=== PATIENT | female | born 1995 | race Caucasian/White ===

== ENCOUNTER 2016-10-12 17:15 | Emergency (ER) | payer BC, OTHER ==
--- NOTE | 2016-10-12 17:45 | ER Document Report ---
ED Medical Screen (RME) - General Stated Complaint: VAGINAL BLEEDING Notes: abdominal cramping vaginal bleeding 445 pm heavy with clots 14 weeks I have greeted and performed a rapid initial assessment of this patient. A comprehensive ED assessment and evaluation of the patient, analysis of test results and completion of the medical decision making process will be conducted by additional ED providers. - Related Data Allergies/Adverse Reactions: No Known Allergies Allergy (Unverified 10/12/16 17:43) Physical Exam - Vital signs Vitals: Temp Pulse Resp BP Pulse Ox 97.9 F 80 16 118/64 100 10/12/16 17:29 10/12/16 17:29 10/12/16 17:29 10/12/16 17:29 10/12/16 17:29 Course - Vital Signs Vital signs: Temp Pulse Resp BP Pulse Ox 97.9 F 80 16 118/64 100 10/12/16 17:29 10/12/16 17:29 10/12/16 17:29 10/12/16 17:29 10/12/16 17:29
[2016-10-12 18:20] LABS: ABSOLUTE EOSINOPHILS # (AUTO) 0.1 10^3/uL (0.0-0.6); ABSOLUTE LYMPHOCYTES (AUTO) 1.6 10^3/uL (0.5-4.7); ABSOLUTE MONOCYTES (AUTO) 0.7 10^3/uL (0.1-1.4); ABSOLUTE NEUT (AUTO) 8.8 10^3/uL (1.7-8.2); BASOPHILS % (AUTO) 0.3 % (0-2); HEMATOCRIT 41.6 % (36.0-47.0); HGB HCT DIFFERENCE 0.4; LYMPHOCYTES % (AUTO) 14.3 % (13-45); MEAN CORPUSCULAR HEMOGLOBIN 31.7 pg (27.0-33.4); MEAN CORPUSCULAR HGB CONC 33.8 g/dL (32.0-36.0); MEAN CORPUSCULAR VOLUME 94 fl (80-97); MONOCYTES % (AUTO) 6.1 % (3-13); RED BLOOD COUNT 4.42 10^6/uL (3.72-5.28); RED CELL DISTRIBUTION WIDTH 12.4 % (11.5-14.0); SEGMENTED NEUTROPHILS % (AUTO) 78.3 % (42-78); WHITE BLOOD COUNT 11.2 10^3/uL (4.0-10.5)
[2016-10-12 18:32] LABS: ALANINE AMINOTRANSFERASE 31 U/L (9-52); ALBUMIN 4.1 g/dL (3.5-5.0); ALKALINE PHOSPHATASE 39 U/L (38-126); ANION GAP 12 (5-19); ASPARTATE AMINO TRANSFERASE 22 U/L (14-36); BILIRUBIN,TOTAL 0.4 mg/dL (0.2-1.3); BLOOD UREA NITROGEN 7 mg/dL (7-20); CALCIUM 9.8 mg/dL (8.4-10.2); CARBON DIOXIDE 25 mmol/L (22-30); CHLORIDE 102 mmol/L (98-107); CREATININE RESULT 0.83 mg/dL (0.52-1.25); GLUCOSE 70 mg/dL (75-110); POTASSIUM 4.1 mmol/L (3.6-5.0); SODIUM 139.3 mmol/L (137-145); TOTAL PROTEIN 7.5 g/dL (6.3-8.2)
--- NOTE | 2016-10-12 19:23 | ER Document Report ---
ED GI/ - General Chief Complaint: Vaginal Bleeding Stated Complaint: VAGINAL BLEEDING Time seen by provider: 19:10 Notes: Patient is a 21 year old femal, at 14 weeks gestation by first trimester ultrasound, that comes to the ED for chief complaint of vaginal bleeding which was painless, lasted for about 30 minutes but did have a few clots, she states that she has stopped bleeding and is currently asymptomatic. Patient states she felt so good this morning that she went for a run. Patient denies fever, nausea or vomiting, vaginal discharge, flank pain. Patient takes vitamins. Past medical history of cholecystectomy, appendectomy. TRAVEL OUTSIDE OF THE [place] IN LAST 30 DAYS: No - Related Data Allergies/Adverse Reactions: No Known Allergies Allergy (Unverified 10/12/16 17:43) Past Medical History - General Information source: Patient - Social History Smoking Status: Never Smoker Chew tobacco use (# tins/day): No Frequency of alcohol use: None Drug Abuse: None Lives with: Family Family History: Reviewed & Not Pertinent Patient has suicidal ideation: No Patient has homicidal ideation: No - Medical History Medical History: Negative Renal/ Medical History: Denies: Hx Peritoneal Dialysis Surgical Hx: Negative - Immunizations Immunizations up to date: Yes Hx Diphtheria, Pertussis, Tetanus Vaccination: Yes Review of Systems - Review of Systems Constitutional: No symptoms reported EENT: No symptoms reported Cardiovascular: No symptoms reported Respiratory: No symptoms reported Gastrointestinal: No symptoms reported Genitourinary: No symptoms reported Female Genitourinary: See HPI Musculoskeletal: No symptoms reported Skin: No symptoms reported Hematologic/Lymphatic: No symptoms reported Neurological/Psychological: No symptoms reported Physical Exam - Vital signs Vitals: Temp Pulse Resp BP Pulse Ox 97.9 F 80 16 118/64 100 10/12/16 17:29 10/12/16 17:29 10/12/16 17:29 10/12/16 17:29 10/12/16 17:29 Interpretation: Normal - General General appearance: Appears well, Alert In distress: None - HEENT Head: Normocephalic, Atraumatic Eyes: Normal Pupils: PERRL - Respiratory Respiratory status: No respiratory distress Chest status: Nontender Breath sounds: Normal Chest palpation: Normal - Cardiovascular Rhythm: Regular Heart sounds: Normal auscultation Murmur: No - Abdominal Inspection: Normal Distension: No distension Bowel sounds: Normal Tenderness: Nontender. No: Tender, McBurney's point, Albarado's sign, Guarding Organomegaly: No organomegaly - Back Back: Normal, Nontender. No: Tender, CVA tenderness - Extremities General upper extremity: Normal inspection, Nontender, Normal color, Normal ROM , Normal temperature General lower extremity: Normal inspection, Nontender, Normal color, Normal ROM , Normal temperature, Normal weight bearing. No: Dianelys's sign - Neurological Neuro grossly intact: Yes Cognition: Normal Orientation: AAOx4 [place] Coma Scale Eye Opening: Spontaneous [place] Coma Scale Verbal: Oriented Marycruz Coma Scale Motor: Obeys Commands Marycruz Coma Scale Total: 15 Speech: Normal Motor strength normal: LUE, RUE, LLE, RLE Sensory: Normal - Psychological Associated symptoms: Normal affect, Normal mood - Skin Skin Temperature: Warm Skin Moisture: Dry Skin Color: Normal Course - Re-evaluation Re-evalutation: Soft abdomen, no abdomen tenderness reported. Living IUP with no noted abnormalities on ultrasound. RhoGAM is not indicated. Laboratory workup is unremarkable. Discussed all details of patient, gave precautions, patient has close follow up with 911 TELECOMMUNICATOR plan, discussed return precautions. Patient and significant other state understanding and agreement - Vital Signs Vital signs: Temp Pulse Resp BP Pulse Ox 98.5 F 84 18 112/68 100 10/12/16 20:44 10/12/16 20:44 10/12/16 20:44 10/12/16 20:44 10/12/16 20:44 - Laboratory Result Diagrams: 10/12/16 17:55 10/12/16 17:55 Laboratory results interpreted by me: 10/12/16 10/12/16 17:55 17:55 WBC 11.2 H Seg Neutrophils % 78.3 H Absolute Neutrophils 8.8 H Glucose 70 L Beta HCG, Quant 71153.00 H Discharge - Discharge Clinical Impression: Vaginal bleeding in patient at less than 20 weeks gestation Condition: Stable Disposition: HOME, SELF-CARE Additional Instructions: Ultrasound shows living intrauterine with no concerning abnormalities. Blood type is A+, laboratory workup shows no concerning findings. Follow precautions: do not run, perform jumping or lifting exercises, do not have intercourse until cleared to do so by 911 TELECOMMUNICATOR. Return to emergency department for any concerning symptoms. Forms: Return to Work Referrals: HANH LYONS MD [Primary Care Provider] - Follow up as needed
[2016-10-12 20:53] VITALS: BP 112/68
== END 2016-10-12 20:54 | disposition home or self-care (01) ==
LOC: ER 17:15
DX: O20.9 Hemorrhage in early pregnancy, unspecified (principal); N93.8 Other specified abnormal uterine and vaginal bleeding; Z3A.14 14 weeks gestation of pregnancy
CPT/HCPCS: 36415; 76801; 80053; 84702; 85025; 86900; 86901; 99284

== ENCOUNTER 2016-11-12 15:00 | Emergency (ER) | payer BC, OTHER ==
--- NOTE | 2016-11-12 15:09 | ER Document Report ---
ED Medical Screen (RME) - General Stated Complaint: FLU SYMPTOMS/ABD PAIN Mode of Arrival: Ambulatory Information source: Patient Notes: c/o dry cough, fever, chills, sore throat, hoarse voice for the past 2 days that worsened today. Sent over from OBGYN for evaluation also for kidney stones. Endorses RLQ pain right below appendectomy scar. Endorses associated nausea, vomiting, dysuria. Denies LOF, vaginal bleeding or vaginal discharge. 18 weeks hx of cholecystectomy, appendectomy. I have greeted and performed a rapid initial assessment of this patient. A comprehensive ED assessment and evaluation of the patient, analysis of test results and completion of the medical decision making process will be conducted by additional ED providers. TRAVEL OUTSIDE OF THE [place] IN LAST 30 DAYS: No - Related Data Allergies/Adverse Reactions: levofloxacin [From Levaquin] Allergy (Verified 11/12/16 15:09) Past Medical History Renal/ Medical History: Denies: Hx Peritoneal Dialysis - Immunizations Immunizations up to date: Yes Hx Diphtheria, Pertussis, Tetanus Vaccination: Yes Physical Exam - Vital signs Vitals: Temp Pulse Resp BP Pulse Ox 98.1 F 109 H 16 104/67 100 11/12/16 15:04 11/12/16 15:04 11/12/16 15:04 11/12/16 15:04 11/12/16 15:04 Interpretation: Tachycardic Course - Vital Signs Vital signs: Temp Pulse Resp BP Pulse Ox 98.1 F 109 H 16 104/67 100 11/12/16 15:04 11/12/16 15:04 11/12/16 15:04 11/12/16 15:04 11/12/16 15:04
[2016-11-12 15:33] LABS: ABSOLUTE LYMPHOCYTES (AUTO) 0.9 10^3/uL (0.5-4.7); ABSOLUTE MONOCYTES (AUTO) 0.4 10^3/uL (0.1-1.4); BASOPHILS % (AUTO) 0.3 % (0-2); EOSINOPHILS % (AUTO) 0.2 % (0-6); HEMATOCRIT 36.4 % (36.0-47.0); HEMOGLOBIN 12.8 g/dL (12.0-15.5); LYMPHOCYTES % (AUTO) 16.7 % (13-45); MEAN CORPUSCULAR HEMOGLOBIN 32.5 pg (27.0-33.4); MEAN CORPUSCULAR HGB CONC 35.1 g/dL (32.0-36.0); MEAN CORPUSCULAR VOLUME 93 fl (80-97); MONOCYTES % (AUTO) 8.3 % (3-13); RED BLOOD COUNT 3.92 10^6/uL (3.72-5.28); RED CELL DISTRIBUTION WIDTH 12.7 % (11.5-14.0); SEGMENTED NEUTROPHILS % (AUTO) 74.5 % (42-78); WHITE BLOOD COUNT 5.4 10^3/uL (4.0-10.5)
[2016-11-12 15:43] LABS: ALANINE AMINOTRANSFERASE 40 U/L (9-52); ALBUMIN 3.9 g/dL (3.5-5.0); ALKALINE PHOSPHATASE 43 U/L (38-126); ANION GAP 11 (5-19); ASPARTATE AMINO TRANSFERASE 30 U/L (14-36); BILIRUBIN,TOTAL 0.4 mg/dL (0.2-1.3); BLOOD UREA NITROGEN 4 mg/dL (7-20); CALCIUM 9.2 mg/dL (8.4-10.2); CARBON DIOXIDE 26 mmol/L (22-30); CHLORIDE 100 mmol/L (98-107); CREATININE RESULT 0.52 mg/dL (0.52-1.25); GLUCOSE 79 mg/dL (75-110); POTASSIUM 3.9 mmol/L (3.6-5.0); SODIUM 137.1 mmol/L (137-145); TOTAL PROTEIN 6.8 g/dL (6.3-8.2)
[2016-11-12] MEDS ORDERED: NORMAL SALINE 1000 ML 1,000 ML IV ONE ×2 (15:45→20:32)
--- NOTE | 2016-11-12 15:56 | ER Document Report ---
ED GI/ - General Mode of Arrival: Ambulatory TRAVEL OUTSIDE OF THE [place] IN LAST 30 DAYS: No - HPI Patient complains to provider of: Abdominal pain - RLQ, Flank pain - Right Onset: Yesterday Location: RLQ, Right flank Associated symptoms: Other - see above Exacerbated by: Supine, Sitting <CLIFF MANUEL - Last Filed: 11/12/16 16:24> <TAMANNA SMALLS - Last Filed: 11/12/16 21:51> - General Chief Complaint: Pain All Over Stated Complaint: FLU SYMPTOMS/ABD PAIN Notes: 21 year old female (; 18 weeks 2 days) presents to the ED complaining of RLQ and right flank pain that started yesterday. Patient reports that she went to [facility] yesterday after she proceeded to vomit after her accidentally kicked her right abdomen. Patient informed [facility] about her pain and was told that she might have a "kidney stone." Patient states that she experiences sharp RLQ pain towards the end of her urination. Patient denies and left sided abdominal or flank pain. Patient explains that sitting or laying supine exacerbates the pain. Patient is additionally complaining of chills, cough and congestion, but denies diarrhea. Patient has a history of appendectomy and cholecystectomy. Patient denies getting the flu shot. (CLIFF MANUEL) - Related Data Allergies/Adverse Reactions: levofloxacin [From Levaquin] Allergy (Verified 11/12/16 15:09) Past Medical History - General Information source: Patient - Social History Smoking Status: Current Every Day Smoker Chew tobacco use (# tins/day): No Frequency of alcohol use: None Drug Abuse: None Family History: Reviewed & Not Pertinent Patient has suicidal ideation: No Patient has homicidal ideation: No Renal/ Medical History: Denies: Hx Peritoneal Dialysis Past Surgical History: Reports: Hx Appendectomy, Hx Cholecystectomy - Immunizations Immunizations up to date: Yes Hx Diphtheria, Pertussis, Tetanus Vaccination: Yes <CLIFF MANUEL - Last Filed: 11/12/16 16:24> Review of Systems - Review of Systems Constitutional: See HPI, Chills EENT: See HPI, Nose congestion Cardiovascular: No symptoms reported Respiratory: See HPI, Cough Gastrointestinal: See HPI, Abdominal pain - RLQ. denies: Diarrhea Genitourinary: See HPI, Flank pain - Right Female Genitourinary: See HPI, - 18 weeks 2 days () Musculoskeletal: No symptoms reported Skin: No symptoms reported Hematologic/Lymphatic: No symptoms reported Neurological/Psychological: No symptoms reported -: Yes All other systems reviewed and negative <CLIFF MANUEL - Last Filed: 11/12/16 16:24> Physical Exam - General General appearance: Alert In distress: None - HEENT Head: Normocephalic, Atraumatic Eyes: Normal Extraocular movements intact: Yes Pupils: PERRL - Respiratory Respiratory status: No respiratory distress Breath sounds: Normal - Cardiovascular Rhythm: Regular Heart sounds: Normal auscultation - Abdominal Inspection: Normal Distension: No distension Tenderness: Tender - Mild RLQ tenderness to palpation. No: Guarding, Rebound - Back Back: CVA tenderness - Right. No: Normal - Extremities General upper extremity: Normal inspection, Normal ROM General lower extremity: Normal inspection, Normal ROM - Neurological Neuro grossly intact: Yes Cognition: Normal Orientation: AAOx4 [place] Coma Scale Eye Opening: Spontaneous [place] Coma Scale Verbal: Oriented [place] Coma Scale Motor: Obeys Commands Marycruz Coma Scale Total: 15 Speech: Normal - Psychological Associated symptoms: Normal affect, Normal mood - Skin Skin Temperature: Warm Skin Moisture: Dry Skin Color: Normal <CLIFF MANUEL - Last Filed: 11/12/16 16:24> <TAMANNA SMALLS - Last Filed: 11/12/16 21:51> - Vital signs Vitals: Temp Pulse Resp BP Pulse Ox 98.1 F 109 H 16 104/67 100 11/12/16 15:04 11/12/16 15:04 11/12/16 15:04 11/12/16 15:04 11/12/16 15:04 Course - Laboratory Result Diagrams: 11/12/16 15:10 11/12/16 15:10 <CLIFF MANUEL - Last Filed: 11/12/16 16:24> - Laboratory Result Diagrams: 11/12/16 15:10 11/12/16 15:10 <TAMANNA SMALLS - Last Filed: 11/12/16 21:51> - Vital Signs Vital signs: Temp Pulse Resp BP Pulse Ox 98.1 F 91 16 100/57 L 100 11/12/16 15:04 11/12/16 20:17 11/12/16 15:04 11/12/16 20:17 11/12/16 20:17 - Laboratory Laboratory results interpreted by me: 11/12/16 11/12/16 15:00 15:10 BUN 4 L Urine Protein 30 H Urine Ketones 20 H Ur Leukocyte Esterase SMALL H Urine Ascorbic Acid 40 H Discharge <CLIFF MANUEL - Last Filed: 11/12/16 16:24> <TAMANNA SMALLS - Last Filed: 11/12/16 21:51> - Discharge Clinical Impression: Influenza B, Pyelonephritis, Condition: Stable Disposition: HOME, SELF-CARE Instructions: Influenza ([facility]), Pyelonephritis ([facility]), ([facility]) Additional Instructions: Please 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 Return immediately if you're feeling worse. Prescriptions: Ondansetron [Zofran Odt 4 mg Tablet] 1 - 2 tab PO Q4HP PRN #20 tab.rapdis PRN Reason: Cefdinir [Omnicef 300 mg Capsule] 1 cap PO BID #30 capsule Metoclopramide HCl [Reglan 10 mg Tablet] 1 - 2 tab PO ASDIR PRN #25 tablet PRN Reason: Scribe Documentation - Scribe Written by Yuliya:: Yuliya Jimenez, 11/12/2016 1612 acting as scribe for :: [place] <CLIFF MANUEL - Last Filed: 11/12/16 16:24>
[2016-11-12 17:04] LABS: APPEARANCE,URINE CLOUDY; BILIRUBIN,URINE NEGATIVE (NEGATIVE); GLUCOSE, URINE NEGATIVE (NEGATIVE); KETONES,URINE 20 mg/dL (NEGATIVE); LEUKOCYTE ESTERASE,URINE SMALL (NEGATIVE); NITRITE,URINE NEGATIVE (NEGATIVE); PROTEIN,URINE 30 mg/dL (NEGATIVE); URINE SPECIFIC GRAVITY 1.024; UROBILINOGEN,URINE NEGATIVE mg/dL (<2.0)
[2016-11-12] MEDS ORDERED: ACETAMINOPHEN 325 MG TABLET PO ONE ×2 (17:21→17:54)
[2016-11-12] MEDS ORDERED: CEFTRIAXONE 1 GM/D5W RTU 50 ML IV ONE (17:54)
[2016-11-12 22:25] VITALS: BP 102/56
== END 2016-11-12 22:25 | disposition home or self-care (01) ==
LOC: ER 15:00
DX: O23.02 Infections of kidney in pregnancy, second trimester (principal); O99.512 Diseases of the respiratory system complicating pregnancy, second trimester; J11.1 Influenza due to unidentified influenza virus with other respiratory manifestations; O26.892 Other specified pregnancy related conditions, second trimester; R10.31 Right lower quadrant pain; R30.0 Dysuria; R68.83 Chills (without fever); R05 Cough; R09.81 Nasal congestion; O21.9 Vomiting of pregnancy, unspecified; O99.332 Smoking (tobacco) complicating pregnancy, second trimester; F17.200 Nicotine dependence, unspecified, uncomplicated; Z3A.18 18 weeks gestation of pregnancy; Z90.49 Acquired absence of other specified parts of digestive tract; Z88.1 Allergy status to other antibiotic agents
CPT/HCPCS: 99284; 96361; 96365; 36415; 87070; 87086; 87880; 85025; 80053; 81001; 87804; 76805; 76705; J7030; J0696

== ENCOUNTER → 2017-02-20 | Outpatient (CLI) | payer BC, OTHER ==
[~2017-02-20] MED LIST: HYDROXYZINE PAMOATE 50 MG CAPSULE ONE; HYDROXYZINE PAMOATE 50 MG CAPSULE PO ONE; RINGERS SOLUTION,LACTATED 1,000 ML IV PRN
[2017-02-20 06:53] LABS: AMORPHOUS SEDIMENT,URINE TRACE /HPF; BILIRUBIN,URINE NEGATIVE (NEGATIVE); GLUCOSE, URINE NEGATIVE (NEGATIVE); KETONES,URINE NEGATIVE (NEGATIVE); LEUKOCYTE ESTERASE,URINE NEGATIVE (NEGATIVE); NITRITE,URINE NEGATIVE (NEGATIVE); PROTEIN,URINE NEGATIVE (NEGATIVE); URINE SPECIFIC GRAVITY 1.016; UROBILINOGEN,URINE NEGATIVE mg/dL (<2.0)
[2017-02-20 06:54] LABS: APPEARANCE,URINE SLIGHTLY-CLOUDY
[2017-02-20 07:21] LABS: URINE BARBITURATES SCREEN NEGATIVE; URINE METHADONE SCREEN NEGATIVE; URINE OPIATES LOW NEGATIVE; URINE PHENCYCLIDINE SCREEN NEGATIVE
[2017-02-20 07:47] LABS: ABSOLUTE EOSINOPHILS # (AUTO) 0.2 10^3/uL (0.0-0.6); ABSOLUTE LYMPHOCYTES (AUTO) 2.2 10^3/uL (0.5-4.7); ABSOLUTE MONOCYTES (AUTO) 1.1 10^3/uL (0.1-1.4); ABSOLUTE NEUT (AUTO) 9.7 10^3/uL (1.7-8.2); BASOPHILS % (AUTO) 0.4 % (0-2); EOSINOPHILS % (AUTO) 1.7 % (0-6); HEMATOCRIT 32.9 % (36.0-47.0); HEMOGLOBIN 11.2 g/dL (12.0-15.5); HGB HCT DIFFERENCE 0.7; LYMPHOCYTES % (AUTO) 16.8 % (13-45); MEAN CORPUSCULAR HGB CONC 34.1 g/dL (32.0-36.0); MEAN CORPUSCULAR VOLUME 94 fl (80-97); MONOCYTES % (AUTO) 8.5 % (3-13); RED BLOOD COUNT 3.51 10^6/uL (3.72-5.28); RED CELL DISTRIBUTION WIDTH 12.8 % (11.5-14.0); SEGMENTED NEUTROPHILS % (AUTO) 72.6 % (42-78); WHITE BLOOD COUNT 13.4 10^3/uL (4.0-10.5)
[2017-02-20 08:10] LABS: ALANINE AMINOTRANSFERASE 15 U/L (9-52); ALBUMIN 3.1 g/dL (3.5-5.0); ALKALINE PHOSPHATASE 60 U/L (38-126); AMYLASE 62 U/L (30-110); ANION GAP 10 (5-19); ASPARTATE AMINO TRANSFERASE 15 U/L (14-36); BILIRUBIN,DIRECT 0.2 mg/dL (0.0-0.4); BILIRUBIN,TOTAL 0.3 mg/dL (0.2-1.3); BLOOD UREA NITROGEN 6 mg/dL (7-20); CALCIUM 8.8 mg/dL (8.4-10.2); CARBON DIOXIDE 23 mmol/L (22-30); CHLORIDE 106 mmol/L (98-107); CREATININE RESULT 0.51 mg/dL (0.52-1.25); GLUCOSE 84 mg/dL (75-110); LIPASE 57.5 U/L (23-300); TOTAL PROTEIN 6.1 g/dL (6.3-8.2)
--- NOTE | 2017-02-20 08:51 | RADIOLOGY REPORT (SQ) ---
EXAM DESCRIPTION: U/S ABDOMEN LIMITED W/O DOP COMPLETED DATE/TIME: 02/20/2017 8:30 am REASON FOR STUDY: RUQ pain COMPARISON: 11/12/2016. TECHNIQUE: Dynamic and static grayscale images acquired of the abdomen and recorded on PACS. Additio nal selected color Doppler and spectral images recorded. LIMITATIONS: None. FINDINGS: PANCREAS: No masses. Visualized pancreatic duct normal caliber. LIVER: No masses. Echotexture normal. LIVER VASCULATURE: Normal directional flow of the main portal vein and hepatic veins. GALLBLADDER: Surgically absent. ULTRASOUND-DETECTED OLIVARES'S SIGN: Not applicable. INTRAHEPATIC DUCTS AND COMMON DUCT: CBD and intrahepatic ducts normal caliber. No filling defects. INFERIOR VENA CAVA: Normal flow. AORTA: No aneurysm. RIGHT KIDNEY: Normal size. Normal echogenicity. No solid or suspicious masses. No hydronephrosis. No calcifications. PERITONEAL AND RIGHT PLEURAL SPACE: No ascites or effusions. OTHER: Gravid uterus. IMPRESSION: NORMAL RIGHT UPPER QUADRANT ULTRASOUND STATUS POST CHOLECYSTECTOMY. NO SIGNIFICANT HOOD GE FROM PRIOR STUDY. TECHNICAL DOCUMENTATION: JOB ID: [id number] [email or web address]- All Rights Reserved
--- NOTE | 2017-02-20 08:53 | RADIOLOGY REPORT (SQ) ---
EXAM DESCRIPTION: U/S OB LIMITED COMPLETED DATE/TIME: 02/20/2017 8:35 am REASON FOR STUDY: 32wk IUP, cervical length, ctx COMPARISON: 11/12/2016 TECHNIQUE: Limited transvaginal and transabdominal grayscale ultrasound for evaluation of specific r equested obstetrical parameters. LIMITATIONS: None. FINDINGS: CERVICAL LENGTH: 3.8 cm. Closed. FHR: 125 beats per minute. PRESENTATION: Transverse OTHER: No other significant findings. IMPRESSION: LIMITED OBSTETRICAL ULTRASOUND WITH MEASURED PARAMETERS DELINEATED ABOVE. Trimester of : Third trimester - 28 weeks to delivery. TECHNICAL DOCUMENTATION: JOB ID: [id number] [employer]- All Rights Reserved
--- NOTE | 2017-02-20 12:00 | Non Stress Test Report ---
Non Stress Test Datetime Report Generated by CPN: 02/20/2017 12:00 DEMOGRAPHIC EGA NST: 32.4 INDICATION Indication for Study: Ordered by Provider Indication for Study (NST) Other: Contractions MONITORING Monitor Explained: Monitor Explained; Test Explained; Patient Verbalized Understanding Time on Monitor: 02/20/2017 06:17 Time off Monitor: 02/20/2017 07:26 NST Duration: 69 NST INTERVENTIONS NST Interventions: IV Fluids Physician Notified NST: Dr. Gorman BABY A: [id number] BABY A Movement : Present Contraction Frequency : Irreg FHR Baseline : 120 Accelerations : 15X15 Decelerations : None Variability : Moderate 6-25bpm NST Review: Meets Criteria for Reactive NST NST Review and Verified By : Dieudonne Nolen RN NST Results: Reactive NST REPORT Report Trigger: Send Report
== END ==
LOC: EDSTATUS 06:06 → LC 06:11
PROVIDERS: ATTEND Obstetrics & Gynecology
PROC: 4A1HXCZ Monitoring of Products of Conception, Cardiac Rate, External Approach (ICD-10-PCS; principal; 2017-02-20)
DX: O47.03 False labor before 37 completed weeks of gestation, third trimester (principal); Z3A.32 32 weeks gestation of pregnancy
CPT/HCPCS: 36415; 59025; 76705; 76815; 80053; 80307; 81001; 82150; 83690; 85025

== ENCOUNTER 2017-02-27 14:42 | Outpatient (CLI) | payer BC, OTHER ==
[2017-02-27 15:21] LABS: APPEARANCE,URINE SLIGHTLY-CLOUDY; BILIRUBIN,URINE NEGATIVE (NEGATIVE); GLUCOSE, URINE NEGATIVE (NEGATIVE); KETONES,URINE NEGATIVE (NEGATIVE); LEUKOCYTE ESTERASE,URINE TRACE (NEGATIVE); NITRITE,URINE NEGATIVE (NEGATIVE); PROTEIN,URINE NEGATIVE (NEGATIVE); URINE SPECIFIC GRAVITY 1.023; UROBILINOGEN,URINE NEGATIVE mg/dL (<2.0)
[2017-02-27 15:46] LABS: URINE BARBITURATES SCREEN NEGATIVE; URINE METHADONE SCREEN NEGATIVE; URINE OPIATES LOW NEGATIVE; URINE PHENCYCLIDINE SCREEN NEGATIVE
--- NOTE | 2017-02-27 16:27 | Non Stress Test Report ---
Non Stress Test Datetime Report Generated by CPN: 02/27/2017 16:27 DEMOGRAPHIC EGA NST: 33.4 INDICATION Indication for Study: Decreased Movement MONITORING Monitor Explained: Monitor Explained; Test Explained; Patient Verbalized Understanding Time on Monitor: 02/27/2017 14:56 Time off Monitor: 02/27/2017 15:52 NST Duration: 56 NST INTERVENTIONS NST Interventions: PO Hydration Physician Notified NST: Dr. Dubno BABY A: [id number] BABY A Movement : Present Contraction Frequency : Irreg FHR Baseline : 120 Accelerations : 15X15 Decelerations : None Variability : Moderate 6-25bpm NST Review: Meets Criteria for Reactive NST NST Review and Verified By : Aylsha Badillo RN NST Results: Reactive NST REPORT Report Trigger: Send Report
== END 2017-02-27 16:07 | disposition home or self-care (01) ==
LOC: LC 14:42
PROVIDERS: ATTEND Obstetrics & Gynecology
PROC: 4A1HXCZ Monitoring of Products of Conception, Cardiac Rate, External Approach (ICD-10-PCS; principal; 2017-02-27)
DX: O36.8130 Decreased fetal movements, third trimester, not applicable or unspecified (principal); Z3A.33 33 weeks gestation of pregnancy
CPT/HCPCS: 59025; 80307; 81001

== ENCOUNTER 2017-04-13 05:43 | Inpatient (IN) | payer BC, OTHER ==
[2017-04-13] MEDS ORDERED: RINGERS SOLUTION,LACTATED 1,000 ML IV PRN (05:56)
[2017-04-13] MEDS ORDERED: RINGERS SOLUTION,LACTATED 300 ML IV ONE (05:56)
[2017-04-13] MEDS ORDERED: PENICILLIN G POTASSIUM 5,000,000 UNIT in DEXTROSE 5%-WATER 100 ML IV ONE (06:00)
[2017-04-13 06:38] LABS: APPEARANCE,URINE CLOUDY; BILIRUBIN,URINE NEGATIVE (NEGATIVE); GLUCOSE, URINE NEGATIVE (NEGATIVE); KETONES,URINE NEGATIVE (NEGATIVE); LEUKOCYTE ESTERASE,URINE MODERATE (NEGATIVE); NITRITE,URINE NEGATIVE (NEGATIVE); PROTEIN,URINE NEGATIVE (NEGATIVE); URINE SPECIFIC GRAVITY 1.013; UROBILINOGEN,URINE NEGATIVE mg/dL (<2.0)
[2017-04-13 06:47] LABS: ABSOLUTE EOSINOPHILS # (AUTO) 0.2 10^3/uL (0.0-0.6); ABSOLUTE LYMPHOCYTES (AUTO) 2.4 10^3/uL (0.5-4.7); ABSOLUTE MONOCYTES (AUTO) 0.9 10^3/uL (0.1-1.4); ABSOLUTE NEUT (AUTO) 9.3 10^3/uL (1.7-8.2); BASOPHILS % (AUTO) 0.1 % (0-2); EOSINOPHILS % (AUTO) 1.3 % (0-6); HEMATOCRIT 31.3 % (36.0-47.0); HEMOGLOBIN 10.9 g/dL (12.0-15.5); HGB HCT DIFFERENCE 1.4; LYMPHOCYTES % (AUTO) 18.7 % (13-45); MEAN CORPUSCULAR HEMOGLOBIN 31.7 pg (27.0-33.4); MEAN CORPUSCULAR HGB CONC 34.9 g/dL (32.0-36.0); MEAN CORPUSCULAR VOLUME 91 fl (80-97); MONOCYTES % (AUTO) 6.9 % (3-13); RED BLOOD COUNT 3.45 10^6/uL (3.72-5.28); WHITE BLOOD COUNT 12.7 10^3/uL (4.0-10.5)
[2017-04-13 06:53] LABS: URINE BARBITURATES SCREEN NEGATIVE; URINE METHADONE SCREEN NEGATIVE; URINE OPIATES LOW NEGATIVE; URINE PHENCYCLIDINE SCREEN NEGATIVE
[2017-04-13] MEDS ORDERED: MISOPROSTOL 0.1 MG TABLET PO ONE (07:57)
[2017-04-13] MEDS ORDERED: MISOPROSTOL 0.1 MG TABLET ONE (07:57)
[2017-04-13] MEDS ORDERED: MISOPROSTOL 0.1 MG TABLET PV ONE (07:58)
[2017-04-13] MEDS ORDERED: PENICILLIN G-K 5 MILLION UNIT VIAL ONE ×3 (09:03→21:23)
[2017-04-13] MEDS: PENICILLIN G POTASSIUM 2,500,000 UNIT in DEXTROSE 5%-WATER 50 ML IV SCH ×3 (10:00→21:27)
--- NOTE | 2017-04-13 13:01 | L&D Progress Notes ---
PROGRESS NOTES Datetime Report Generated by CPN: 04/13/2017 13:00 PROGRESS NOTE Impression: Reassuring Heart Rate Procedures: Sterile Vag Exam Procedures- Other: SROM, clear Plan Other: Start pitocin when ctx space out Informed Consent Obtained: Vaginal Delivery Informed Consent Obtained: Vaginal Delivery; Induction of Labor; Risks, Benefits and Alternatives Discussed Vital Signs : Reviewed Comment: SROM, clear Pitocin per potocol S/p dose #1 of pcn VAGINAL EXAM Dilatation: 3 Dilatation: 1 Effacement: 50 Effacement: 5 Station: -2 Station: -3 Contractions: 2-4 MEMBRANES Membranes: Ruptured Membranes: Intact Amniotic Fluid Color: Clear FETUS A FHR - Baseline: 125 Monitoring: External US Variability: Moderate 6-25bpm Accelerations: 15X15 Decelerations: None FHR Category: Category I Presentation: Vertex SIGNATURE SIGNATURE: [id number];[id number] SIGNATURE: [id number] SIGNATURE: [id number] Assignment: Lluvia Dubon MD Signature: with User ID: [email or web address] : with User ID: Lisa
[2017-04-13] MEDS ORDERED: MISOPROSTOL 0.2 MG TABLET ONE (13:02)
[2017-04-13] MEDS ORDERED: OXYTOCIN/NORMAL SALINE 20 UNIT/1,000 ML RTUINJ ONE (13:03)
[2017-04-13] MEDS ORDERED: LIDOCAINE 1% INJ-PF (10 MG/ML) 30 ML SDV ONE (13:03)
[2017-04-13] MEDS: OXYTOCIN/NORMAL SALINE 1,000 ML IV PRN ×2 (16:01→16:02)
[2017-04-13] MEDS ORDERED: NALBUPHINE HCL INJ 10 MG/1 ML AMPULE INJ ONE (18:38)
[2017-04-13] MEDS ORDERED: PROMETHAZINE HCL INJ 25 MG/1 ML VIAL IV ONE (18:38)
[2017-04-13] MEDS ORDERED: PROMETHAZINE HCL INJ 25 MG/1 ML VIAL ONE (18:45)
[2017-04-13] MEDS ORDERED: NALBUPHINE HCL INJ 10 MG/1 ML AMPULE ONE (18:46)
--- NOTE | 2017-04-13 21:05 | L&D Progress Notes ---
PROGRESS NOTES Datetime Report Generated by CPN: 04/13/2017 21:05 PROGRESS NOTE Impression: Normal Progression of Labor Plan: Continue Present Management Vital Signs : Reviewed VAGINAL EXAM Dilatation: 5 Effacement: 60 Station: -2 MEMBRANES Membranes: Ruptured FETUS A FHR - Baseline: 120 Monitoring: External US Variability: Moderate 6-25bpm Decelerations: None FHR Category: Category I : 40.0 FETUS C SIGNATURE: [id number];[id number] Signature: with User ID: Brady
[2017-04-13] MEDS ORDERED: ONDANSETRON HCL INJ/PF 4 MG/2 ML SDV ONE (21:12)
[2017-04-13] MEDS ORDERED: FENTANYL/BUPIVACAINE/NS/PF 200 MCG/100 ML RTUINJ EPI ONE (22:34)
[2017-04-13] MEDS ORDERED: BUPIVACAINE HCL 0.25 % INJ/PF (2.5 MG/1 ML) 30 ML VIAL ONE (22:34)
[2017-04-13] MEDS ORDERED: EPHEDRINE SULFATE INJ 50 MG/1 ML AMPULE ONE (22:34)
[2017-04-13] MEDS: DINOPROSTONE 10 MG VAGINAL INSERT.SR PV PRN (23:20)
[2017-04-14] MEDS ORDERED: PSEUDOEPHEDRINE HCL 30 MG TABLET PO PRN (01:35)
[2017-04-14] MEDS ORDERED: ACETAMINOPHEN 650 MG SUPP.RECT PR PRN (01:35)
[2017-04-14] MEDS ORDERED: OXYTOCIN/NORMAL SALINE 20 UNIT/1,000 ML RTUINJ IV PRN (01:35)
[2017-04-14] MEDS ORDERED: GLYCERIN/WITCH HAZEL LEAF 1 EACH MED..PAD TP PRN (01:35)
[2017-04-14] MEDS ORDERED: DIBUCAINE 1% OINTMENT 28 GM TP PRN (01:35)
[2017-04-14] MEDS ORDERED: MAGNESIUM HYDROXIDE SUSP 30 ML UDCUP PO PRN (01:35)
[2017-04-14] MEDS ORDERED: DIPHENHYDRAMINE HCL 25 MG CAPSULE PO PRN (01:35)
[2017-04-14] MEDS ORDERED: DIPH/PERTUSS(ACELL)/TETANUS VAC/PF 0.5 ML SYR (>=10YO) IM PRN (01:35)
[2017-04-14] MEDS ORDERED: BENZOCAINE/MENTHOL AEROSOL SPRAY 56 ML TOP PRN (01:35)
[2017-04-14] MEDS ORDERED: PROMETHAZINE HCL 25 MG TABLET PO PRN (01:35)
[2017-04-14] MEDS ORDERED: MEASLES,MUMPS&RUBELLA VACC/PF 0.5 ML VIAL SUBCUT PRN (01:35)
[2017-04-14] MEDS ORDERED: PROMETHAZINE HCL 25 MG SUPP.RECT PR PRN (01:35)
[2017-04-14] MEDS ORDERED: ZOLPIDEM TARTRATE 5 MG TABLET PO PRN (01:35)
[2017-04-14] MEDS ORDERED: NA PHOS,M-B/NA PHOS,DI-BA (ADULT) 133 ML ENEMA PR PRN (01:35)
[2017-04-14] MEDS ORDERED: PROMETHAZINE HCL INJ 25 MG/1 ML VIAL IV PRN (01:35)
[2017-04-14] MEDS ORDERED: ACETAMINOPHEN WITH CODEINE #3 TABLET PO PRN ×2 (01:35)
[2017-04-14] MEDS: PENICILLIN G POTASSIUM 2,500,000 UNIT in DEXTROSE 5%-WATER 50 ML IV SCH (02:53)
[2017-04-14] MEDS: DINOPROSTONE 10 MG VAGINAL INSERT.SR PV PRN (02:54)
--- NOTE | 2017-04-14 04:02 | Delivery Summary ---
Del Sum A-C Datetime Report Generated by CPN: 04/14/2017 04:02 DELIVERY PERSONNEL DELIVERY PERSONNEL: [id number];[id number];[id number] Delivery Doctor:: Lluvia Dubon MD Labor and Delivery Nurse:: Dalia Rincon RNbingo manager Nurse:: Hoa Miranda RN Portrait Photographer/DEVELOPMENT WRITER: Hafsa Moss, ST MATERNAL INFORMATION Delivery Anesthesia: Epidural Medications After Delivery: Pitocin Drip 20 Units/1000ml NSS Estimated Blood Loss (ml): 250 Maternal Complications: None LABOR SUMMARY EDC: 04/13/2017 00:00 No. Babies in Womb: 1 Attempted: No Labor Anesthesia: Epidural LABOR INFORMATION Reason for Induction: Other Reason for Induction- Other: elective Onset of Labor: 04/13/2017 12:45 Complete Dilatation: 04/14/2017 01:06 Cervical Ripening Agents: Cytotec @ Oxytocin: Induction Group B Beta Strep: positive Antibiotics # of Doses: 5 Antibiotics Time of Last Dose: 013 Name of Antibiotic Given: Penicillin Steroids Given: None Reason Steroids Not Administered: Not Applicable MEMBRANES Membranes Rupture Method: Spontaneous Rupture of Membranes: 04/13/2017 12:45 Length of Rupture (hr): 13.30 Amniotic Fluid Color: Clear Amniotic Fluid Amount: Copious Amniotic Fluid Odor: None STAGES OF LABOR Stage 1 hr: 12 Stage 1 min: 21 Stage 2 hr: 0 Stage 2 min: 57 Stage 3 hr: 0 Stage 3 min: 6 Total Time in Labor hr: 13 Total Time in Labor min: 24 VAGINAL DELIVERY Episiotomy: None Laceration Extension: Second Degree Laceration Type: Perineal Laceration Repair: Yes Laceration Repair Note: repaired with 3-0 chromic in usual fashion Sponge Count Correct: N/A; Vaginal Sweep Performed Sharps Count Correct: Yes CSECTION DELIVERY Primary Indication: N/A Secondary Indication: N/A CSection Incidence: N/A Labor: N/A Elective: N/A CSection Incision: N/A BABY A INFORMATION Delivery Date/Time: 04/14/2017 02:03 Method of Delivery: Vaginal Born in Route : No : N/A Forceps: N/A Vacuum Extraction: N/A Shoulder Dystocia : No PRESENTATION/POSITION BABY A Presentation: Cephalic Cephalic Presentation: Vertex Vertex Position: Right Occipital Anterior Breech Presentation: N/A PLACENTA INFORMATION BABY A Placenta Delivery Time : 04/14/2017 02:09 Placenta Method of Delivery: Spontaneous Placenta Status: Delivered SCORES BABY A Heart Rate 1 min: >100 bpm Resp Effort 1 min: Good Cry Reflex Irritability 1 min: Cough or Sneeze or Pulls Away Muscle Tone 1 min: Active Motion Color 1 min: Body Pence, Extremities Blue Resuscitation Effort 1 min: Tactile Stimulation SCORE 1 MIN: 9 Heart Rate 5 min: >100 bpm Resp Effort 5 min: Good Cry Reflex Irritability 5 min: Cough or Sneeze or Pulls Away Muscle Tone 5 min: Active Motion Color 5 min: Body Pence, Extremities Blue Resuscitation Effort 5 min: Tactile Stimulation SCORE 5 MIN: 9 INFANT INFORMATION BABY A Gestational Age at Delivery: 40.1 Gestational Status: Full Term- 39- 40.6 Weeks Outcome : Liveborn Condition : Stable Sex: Female IDENTIFICATION BABY A Infant Verification Date/Time: 04/14/2017 02:14 ID Band Number: [id number] Mother's Name Verified: Yes Infant RN Verifying Infant: S. Lattibeajeanneir, RN _ M. Ruth, RN WEIGHT/LENGTH BABY A Birthweight (gm): 3440 Weight (lb): 7 Infant Weight (oz): 9 Infant Length (in): 20.50 Length (cm): 52.07 CORD INFORMATION BABY A No. Cord Vessels: 3 Nuchal Cord : N/A Cord Blood Taken: Yes-For Storage (Mom's Blood type +) Suction: Mouth; Nose ASSESSMENT BABY A Infant Complications: Multiple Variable Decels Physical Findings at Delivery: Molding of the Head Respirations: Appears Normal Skin to Skin: Yes Skin to Skin Time (min): 90 Aerospace Stress Engineer/ALS Called : No Care By: Stefan Miranda RN Transferred To: Remains with Mother BABY B INFORMATION : N/A SIGNATURES Signature: with User ID: [email or web address]
[2017-04-14] MEDS: IBUPROFEN 800 MG TABLET PO SCH ×3 (04:21→21:38)
[2017-04-14] MEDS ORDERED: IBUPROFEN 800 MG TABLET ONE (04:22)
--- NOTE | 2017-04-14 04:45 | Admission Physical ---
Datetime Report Generated by CPN: 04/14/2017 04:45 CURRENT ADMISSION Chief Complaint: Scheduled Induction of Labor Indication for Induction: Other Indication for Induction- Other: Social IOL due to deploying in 8Days per scheduling provider Admit Plan: Admit to Unit; Initiate Labor Induction Protocol ALLERGIES Medication Allergies: Yes Medication Allergies: levofloxacin/Hives (04/13/2017) Medication Allergies: levofloxacin/Hives (02/27/2017) Medication Allergies: levofloxacin (02/20/2017) Medication Allergies: levofloxacin (11/12/2016) Latex: No Latex Allergies OBSTETRICAL HISTORY EDC: 04/13/2017 00:00 : 1 Para: 0 Term: 0 : 0 SAB: 0 IAB: 0 Ectopic: 0 Livin Cesareans: 0 VBACs: 0 Multiple Births: 0 Gestational Diabetes: No Rh Sensitization: No Incompetent Cervix: No THOR: No Infertility: No ART Treatment: No Uterine Anomaly: No IUGR: No Hx Previous C/S: No Macrosomia: No Hx Loss/Stillborn: No PIH: No Hx : No Placenta Previa/Abruption: No Depression/PP Depression: No PTL/PROM: No Post Hemorrhage: No Current Procedures: Ultrasound; NST Obstetrical History Comments: G1- current SEE RECORDS Alcohol: Yes Alcohol Comments: prior to Marijuana : No Cocaine: No Other Illicit Drugs: No Cigarettes: Never Smoker. 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 INFECTIOUS HISTORY Gonorrhea: No Genital Herpes: No Chlamydia: Yes Tuberculosis: No Syphilis: No Hepatitis: No HIV/AIDS Exposure: No Rash or Viral Illness: No HPV: No Infectious History Comments: chlam 08/2016- neg HAN 10/2016 PHYSICAL EXAM General: Normal HEENT: Normal Neurologic: Normal Thyroid: Normal Heart: Normal Lungs: Normal Breast: Deferred Back: Normal Abdomen: Normal Genitourinary Exam: Normal Extremities: Normal DTRs: Normal Pelvic Type: Adequate Vital Signs: Reviewed; Within Normal Limits VAGINAL EXAM Dilatation: 5 Dilatation: 3 Dilatation: 1 Effacement: 60 Effacement: 50 Effacement: 5 Station: -2 Station: -2 Station: -3 Contraction Comments: 2-4 MEMBRANES Membranes: Ruptured Membranes: Ruptured Membranes: Intact Amniotic Fluid Color: Clear FETUS A EGA: 40.0 Monitoring: External US FHR- Baseline: 125 Variability: Moderate 6-25bpm Accelerations: 15X15 Decelerations: None FHR Category: Category I Presentation: Vertex Admit Comment: 21yo at 40+0ega presents for social IOL due to deploying in approximately 8 days. Cvx /50/-3/post/soft. Cytotec 50mcg po and 25mcg pV then will re-eval in 4 hours to eval for possible cooks catheter and pitocin. Vtx presentation. c/b +chlamydia (good HAN) and GBS pos, ASCUS +HRHPV pap - Colpo with MORENA I. also c/b pyelo - on prophy. Pt aware of risks of social IOL and risk of section with unfavorable cervix - Corea score is 3. PLANS FOR LABOR AND DELIVERY Labor and Delivery: None Pain Management: Natural Feeding Preference: Breast Benefit of Breast Feed Discussed: Yes Circumcision: N/A INFORMED CONSENT Informed Consent Obtained: Vaginal Delivery Informed Consent Obtained: Vaginal Delivery; Induction of Labor; Risks, Benefits and Alternatives Discussed Signature: with User ID: [email or web address]
[2017-04-14] MEDS: SENNOSIDES/DOCUSATE 8.6-50 MG 1 EACH TABLET PO SCH (09:54)
[2017-04-14] MEDS: FAMOTIDINE 20 MG TABLET PO SCH ×2 (09:54→21:47)
[2017-04-14] MEDS: FERROUS SULFATE 325 MG TABLET PO SCH ×2 (09:54→17:23)
[2017-04-14] MEDS: PRENATAL VITAMIN W-O CA NO5/FE FUMARATE/FA CAPSULE PO SCH (09:55)
[2017-04-14] MEDS: DOCUSATE SODIUM 100 MG CAPSULE PO SCH ×2 (09:55→17:23)
--- NOTE | 2017-04-14 11:59 | PDOC PROGRESS REPORT ---
Subjective-OB Subjective: Post Delivery Day:1 21 year old G1 now P1 s/p ppd1. Denies any needs at this time Physical Exam (OB) Vital Signs: Temp Pulse Resp BP Pulse Ox 99.0 F 77 16 108/54 L 98 04/14/17 07:39 04/14/17 07:39 04/14/17 07:39 04/14/17 07:39 04/14/17 07:39 Intake & Output 04/13/17 04/14/17 04/15/17 06:59 06:59 06:59 Weight 78.4 kg - General General Appearance: Appears well In distress: None - PIH/Pre-Eclampsia Clonus: Negative Headache: Absent Epigastric Pain: No Visual Changes: No - Episiotomy/Laceration Site Condition: Well Approximated, Edematous - Lochia Lochia Amount: Moderate 25-50 ml Lochia Color: Rubra/Red - Abdomen Description: Soft, Flat Hernia Present: No Fundal Description: Firm Fundal Height: u/u - u/2 - Respiratory Respiratory Status: No respiratory distress - Extremities Upper extremity: Normal inspection Lower extremities: Normal inspection - Neurological Cognition: Normal Orientation: AAOx4 - Psychological Associated symptoms: Normal affect, Normal mood Objective-Diagnostic Laboratory: 04/13/17 06:20 Assessment and Plan(PN) - Assessment and Plan (1) Vaginal delivery Is this a current diagnosis for this admission?: YesPlan: continue stay (2) Anemia affecting Qualifiers: Trimester: unspecified trimester Qualified Code(s): O99.019 - Anemia complicating , unspecified trimester Is this a current diagnosis for this admission?: YesPlan: continue po supplementation of iron and iron in diet - Time Spent with Patient Time with patient: 15-25 minutes Medications reviewed and adjusted accordingly: Yes - Disposition Anticipated Discharge: Home Within: within 48 hours
[2017-04-15] MEDS: IBUPROFEN 800 MG TABLET PO SCH ×3 (06:13→23:09)
[2017-04-15 07:03] LABS: HEMATOCRIT 28.9 % (36.0-47.0); HEMOGLOBIN 9.9 g/dL (12.0-15.5); HGB HCT DIFFERENCE 0.8; MEAN CORPUSCULAR HEMOGLOBIN 31.2 pg (27.0-33.4); MEAN CORPUSCULAR HGB CONC 34.3 g/dL (32.0-36.0); MEAN CORPUSCULAR VOLUME 91 fl (80-97); RED BLOOD COUNT 3.17 10^6/uL (3.72-5.28); RED CELL DISTRIBUTION WIDTH 14.7 % (11.5-14.0)
[2017-04-15] MEDS: OXYTOCIN/NORMAL SALINE 1,000 ML IV PRN (08:00)
[2017-04-15] MEDS: DOCUSATE SODIUM 100 MG CAPSULE PO SCH ×2 (09:24→17:55)
[2017-04-15] MEDS: FAMOTIDINE 20 MG TABLET PO SCH ×2 (09:24→23:10)
[2017-04-15] MEDS: SENNOSIDES/DOCUSATE 8.6-50 MG 1 EACH TABLET PO SCH (09:24)
[2017-04-15] MEDS: FERROUS SULFATE 325 MG TABLET PO SCH ×2 (09:24→17:55)
[2017-04-15] MEDS: PRENATAL VITAMIN W-O CA NO5/FE FUMARATE/FA CAPSULE PO SCH (09:25)
--- NOTE | 2017-04-15 13:33 | PDOC PROGRESS REPORT ---
Subjective-OB Subjective: Post Delivery Day: 21 year old. Denies any needs at this time pt sitting up visiting with family offers no complaints pain well managed with no concerns anticipate d/c in AM. Physical Exam (OB) Vital Signs: Temp Pulse Resp BP Pulse Ox 98.7 F 100 16 112/69 100 04/15/17 08:16 04/15/17 08:16 04/15/17 08:16 04/15/17 08:16 04/14/17 19:29 - PIH/Pre-Eclampsia Clonus: Negative Headache: Absent Epigastric Pain: No Visual Changes: No - Lochia Lochia Amount: Scant < 10 ml Lochia Color: Serosa/Brown - Abdomen Description: Soft Hernia Present: No Fundal Description: Firm, Midline Fundal Height: u/u - u/2 Objective-Diagnostic Laboratory: 04/15/17 06:56 04/15/17 06:56 WBC 13.0 H RBC 3.17 L Hgb 9.9 L Hct 28.9 L MCV 91 MCH 31.2 MCHC 34.3 RDW 14.7 H Plt Count 167 Assessment and Plan(PN) - Time Spent with Patient Medications reviewed and adjusted accordingly: Yes - Disposition Anticipated Discharge: Home
[2017-04-15] MEDS ORDERED: ZOLPIDEM TARTRATE 5 MG TABLET PO PRN (14:08)
[2017-04-15] MEDS ORDERED: DIPH/PERTUSS(ACELL)/TETANUS VAC/PF 0.5 ML SYR (>=10YO) IM PRN (14:08)
[2017-04-15] MEDS ORDERED: MEASLES,MUMPS&RUBELLA VACC/PF 0.5 ML VIAL SUBCUT PRN (14:09)
[2017-04-15] MEDS ORDERED: PROMETHAZINE HCL INJ 25 MG/1 ML VIAL IV PRN (14:09)
[2017-04-16] MEDS: IBUPROFEN 800 MG TABLET PO SCH (05:58)
--- NOTE | 2017-04-16 09:37 | PDOC PROGRESS REPORT ---
Subjective-OB Subjective: Post Delivery Day: 21 year old. Denies any needs at this time In bed sleeping, hsb and baby in room, doing well, breast feeding. eating, voiding, ready to go home Physical Exam (OB) Vital Signs: Temp Pulse Resp BP Pulse Ox 98.5 F 90 20 127/74 H 100 04/15/17 19:41 04/15/17 19:41 04/15/17 19:41 04/15/17 19:41 04/15/17 19:41 - PIH/Pre-Eclampsia DTR's: 2 + Clonus: Negative Headache: Absent Epigastric Pain: No Visual Changes: No - Lochia Lochia Amount: Scant < 10 ml Lochia Color: Serosa/Brown - Abdomen Description: Soft, Flat Hernia Present: No Fundal Description: Firm, Midline Fundal Height: u/u - u/2 Objective-Diagnostic Laboratory: 04/15/17 06:56 Assessment and Plan(PN) - Assessment and Plan (1) Vaginal delivery Is this a current diagnosis for this admission?: Yes (2) Anemia affecting Qualifiers: Trimester: unspecified trimester Qualified Code(s): O99.019 - Anemia complicating , unspecified trimester Is this a current diagnosis for this admission?: Yes - Time Spent with Patient Time with patient: Less than 15 minutes Medications reviewed and adjusted accordingly: Yes - Disposition Anticipated Discharge: Home Within: within 24 hours, Other - home today
--- NOTE | 2017-04-16 09:40 | PDOC DISCHARGE SUMMARY ---
Final Diagnosis Discharge Date: 04/16/17 - Final Diagnosis (1) Vaginal delivery Is this a current diagnosis for this admission?: Yes (2) Anemia affecting Is this a current diagnosis for this admission?: Yes Discharge Data - Discharge Medication Home Medications: Vit/Iron Fumarate/FA [ Tablet] 1 tab PO DAILY 02/20/17 Gestational Age: 40.1 Reason(s) for Admission: Induction of Labor Procedures: NST, Ultrasound Intrapartum Procedure(s): Spontaneous Vaginal Delivery Complication(s): Laceration-Perineal Laceration-Degree: 2nd - Data Baby 1 Female at 1 minute: 9 at 5 minutes: 9 Weight: 3.43 kg Home with Mother: Yes Complications: No - Diagnosis Test Laboratory: Temp Pulse Resp BP Pulse Ox 98.5 F 90 20 127/74 H 100 04/15/17 19:41 04/15/17 19:41 04/15/17 19:41 04/15/17 19:41 04/15/17 19:41 04/13/17 04/13/17 04/15/17 06:00 06:20 06:56 RBC 3.45 L 3.17 L Hgb 10.9 L 9.9 L Hct 31.3 L 28.9 L Urine Opiates Screen NEGATIVE - Discharge information/Instructions Discharge Activity: Activity As Tolerated, No Lifting Over 10 Pounds, No Lifting /Push/Pulling, Pelvic Rest Discharge Diet: As Tolerated, Regular Disposition: HOME, SELF-CARE Follow [facility] with: [facility] in: 4, Weeks
[2017-04-16] MEDS: DOCUSATE SODIUM 100 MG CAPSULE PO SCH (09:42)
[2017-04-16] MEDS: SENNOSIDES/DOCUSATE 8.6-50 MG 1 EACH TABLET PO SCH (09:42)
[2017-04-16] MEDS: PRENATAL VITAMIN W-O CA NO5/FE FUMARATE/FA CAPSULE PO SCH (09:43)
[2017-04-16] MEDS: FAMOTIDINE 20 MG TABLET PO SCH (09:43)
[2017-04-16] MEDS: FERROUS SULFATE 325 MG TABLET PO SCH (09:43)
[2017-04-16 11:02] VITALS: BP 117/75
== END 2017-04-16 12:07 | disposition home or self-care (01) | DRG 775 ==
LOC: LR 05:43 → 2N 04-14 04:40
PROVIDERS: ADMIT Student in an Organized Health Care Education/Training Program; ATTEND Obstetrics & Gynecology
PROC: 4A1HXCZ Monitoring of Products of Conception, Cardiac Rate, External Approach (ICD-10-PCS; 2017-04-13)
PROC: 3E0P7GC Introduction of Other Therapeutic Substance into Female Reproductive, Via Natural or Artificial Opening (ICD-10-PCS; 2017-04-13)
PROC: 10E0XZZ Delivery of Products of Conception, External Approach (ICD-10-PCS; principal; 2017-04-14)
PROC: 0KQM0ZZ Repair Perineum Muscle, Open Approach (ICD-10-PCS; 2017-04-14)
DX: O99.824 Streptococcus B carrier state complicating childbirth (principal); O70.1 Second degree perineal laceration during delivery; O76 Abnormality in fetal heart rate and rhythm complicating labor and delivery; O99.02 Anemia complicating childbirth; D64.9 Anemia, unspecified; Z3A.40 40 weeks gestation of pregnancy; Z37.0 Single live birth
CPT/HCPCS: 36415; 80307; 81005; 85025; 85027; 86592; 86850; 86900; 86901; J2300; J2405; J2540; J2550; J2590; J3490